=== PATIENT | male | born 1970 | race Caucasian/White ===

== ENCOUNTER 2022-05-15 11:09 | Outpatient (CLI) | payer OTHER, SELFPAY ==
--- NOTE | 2022-05-15 10:45 | DI.RAD_ITS ---
Exam(s) XR KNEE LT 4V AP,LAT,BERNADETTE,PAT EXAM: XR KNEE LT 4V AP,LAT,BERNADETTE,PAT CLINICAL HISTORY: left knee pain. TECHNIQUE: 2D digital imaging was performed. Three views. COMPARISON: No exams were available for comparison FINDINGS: BONES: No acute fracture is present. No bony destructive lesion is seen. Enthesophyte is seen at patrick driceps insertion on the patella. JOINTS: The knee is normally aligned. No joint effusion is seen. Joint spaces are maintained. Minima l spurring at the tibial spines. SOFT TISSUE: Normal. IMPRESSION: Minimal degenerative changes. DATA REPOSITORY: RADIATION DOSE DELIVERED:
== END 2022-05-15 11:10 | disposition home or self-care (01) ==
LOC: DIORS 11:11
PROVIDERS: PCP Family Medicine; Referring Provider Family Medicine; Visit Provider Physician Assistant
DX: M25.562 Pain in left knee (principal); M76.892 Other specified enthesopathies of left lower limb, excluding foot
CPT/HCPCS: 73564

== ENCOUNTER 2022-12-27 08:03 | Day surgery (SDC) | payer OTHER, SELFPAY ==
--- NOTE | 2022-12-27 07:24 | W.PM.DSUDISC ---
Discharge Plan Disposition Patient Disposition: Home Condition: Good Discharge Details Reason For Visit: Left patellofemoral DJD Attending Provider: Vidal Ramos Primary Care Provider: Rohan Portillo Home Meds and New Rx's Prescriptions: No Action gabapentin 300 mg capsule 300 mg PO DAILY ibuprofen 800 mg tablet 800 mg PO Q8H PRN (Reason: pain) Qty: 180 1RF Discharge Instructions Additional Instructions: Patellofemoral Replacement Discharge Instructions Activity: The most important activity is to walk and to work on gentle motion (both flexion and extension). You should try to take short walks a few times a day. It is important that when resting you work on keeping the knee straight. Avoid putting a pillow behind the knee as this will encourage flexion. Work on range of motion exercises as provided by Physical Therapy. - Start outpatient physical therapy within 2 weeks. - You should wear the AMI hose on both legs for 2 weeks. You may remove these at night. You may also use any compression sock in place of the AMI hose. - Utilize [employer] to review exercises, see videos on exercises and obtain basic information pertaining to your surgery and your recovery. Dressing: Remove the Jerry wrap by 2 days after your surgery and put on the AMI stocking given to you from the hospital. Keep the surgical dressing (underneath the JERRY wrap) in place for at least one week. After the first week it may be removed and replaced with light gauze and tape or nothing. The wound and dressing may get wet after 3 days but avoid soaking the dressing or otherwise it will need to be changed. Many people prefer covering the dressing with cling wrap (saran wrap) to minimize it from getting soaked. If it gets wet, just pat dry. If it starts to peel off then it will need to be changed. Medications: - You should take Tylenol and anti-inflammatory [Celebrex] as your primary pain control medications. If the Celebrex is too expensive or not covered, please call the office for another alternative (Advil/Ibuprofen or Naproxen/Aleve) - You have been prescribed a stronger pain medication [Oxycodone] for breakthrough pain, take as needed as prescribed. - You have also been prescribed a stomach acid reduction agent [Pantoprozole] to help reduce stomach acid and reflux. [- You have been prescribed Gabapentin to take at night for restlessness and nerve pain.] - You will be taking [Aspirin 81mg twice a day] for DVT prevention unless instructed otherwise. [- You have also been prescribed Decadron to take to control post-operative nausea and pain. You will start this tomorrow.] - If you have constipation you should take Colace or Miralax (both [id number]). It takes most people 3-4 days to have a bowel movement. Follow-up: 2 weeks If you have any acute concerns or questions, please do not hesitate to contact the office at [phone]. You may contact Dr. Ramos with any questions after hours through the hospital at [phone] or on his cell phone at [phone]. Referrals: Vidal Ramos MD [ [facility] STAFF PHYSICIAN] - Equipment/Supplies: Walker Activity:: Elevate Remove Dressings/Wound Care:: Do Not Remove Shower/Bathe:: Cover Diet:: As Tolerated
[2022-12-27 08:18] VITALS: BP 153/95; PULSE 68; RESP 16; TEMP 36.5; O2SAT 99
--- NOTE | 2022-12-27 08:36 | PDOC.ANES ---
Date of service: 12/27/22 Time of Service: 08:36 Anesthesia Note Report Anesthesia Note: Patient chewed tobacco at 0800 this morning. Discussed case with Colette Callahan. Due to NPO violation patient will be postponed. Informed Dr. Ramos, transplant case manager, and DSU charge nurse. Had discussion with patient, spouse, and Corrina RN at bedside related to anesthetic risk and rationale for postponement. Patient was disappointed but understanding. Denied questions. Informed me that he has had anesthesia while dipping before. I discussed the danger of that and recommended he always let us know in the future and not use chewing tobacco prior to anesthesia and follow all appropriate NPO guidelines as per preop RN. Will be rescheduled through the office.
== END 2022-12-27 08:04 | disposition home or self-care (01) ==
LOC: SUR 08:04
PROVIDERS: PCP Family Medicine; Visit Provider Student in an Organized Health Care Education/Training Program
DX: M17.12 Unilateral primary osteoarthritis, left knee (principal); Z53.09 Procedure and treatment not carried out because of other contraindication

== ENCOUNTER 2023-01-17 05:57 | Day surgery (SDC) | payer OTHER, SELFPAY ==
[2023-01-17] VITALS (11 sets, daily range): BP systolic 114–153; BP diastolic 58–94; PULSE 53–67; RESP 12–19; TEMP 36.5–37; O2SAT 95–99; BMI 36.4
[2023-01-17] MEDS: Acetaminophen 500 MG TAB 1000 MG PO (06:36)
[2023-01-17] MEDS: Gabapentin 300 MG CAP PO (06:36)
[2023-01-17] MEDS: Celecoxib 200 MG CAP 400 MG PO (06:36)
[2023-01-17] MEDS: Lactated Ringers 1,000 ML 80 ML IV (06:36)
--- NOTE | 2023-01-17 06:45 | W.ANESPRE ---
General Info Date of Service Date Performed: 01/17/23 Height: 6 ft 2 in Weight: 128.9 kg Body Mass Index (BMI): 36.4 Surgical Procedure: Operation Date: 01/17/23 08:00 Proposed Procedure Side Surgeon p Knee Patellofemoral Replacement Left Vidal Ramos MD Meds Allergies and Home Medications Allergies Allergy/AdvReac Type Severity Reaction Status Date / Time No Known Allergies Allergy Verified 01/17/23 06:07 Home Medication Medication Instructions Recorded gabapentin 300 mg capsule 300 mg PO DAILY 05/15/22 ibuprofen 800 mg tablet 800 mg PO Q8H PRN pain #180 tabs 09/07/22 Current Visit Medications: Current Medications Generic Name Dose Route Start Last Admin Trade Name Freq PRN Reason Stop Dose Admin Acetaminophen 1,000 mg 01/17/23 06:00 01/17/23 06:36 Acetaminophen 500 Mg Tab PO 01/17/23 16:00 1,000 mg PREOP SHAWNA Administration Celecoxib 400 mg 01/17/23 06:00 01/17/23 06:36 Celecoxib 200 Mg Cap PO 01/17/23 16:00 400 mg PREOP SHAWNA Administration Gabapentin 300 mg 01/17/23 06:00 01/17/23 06:36 Gabapentin 300 Mg Cap PO 01/17/23 16:00 300 mg PREOP SHAWNA Administration Tranexamic Acid 1,000 mg/ 60 mls @ 360 mls/hr 01/17/23 06:00 Sodium Chloride IVPB 01/17/23 16:00 PREOP SHAWNA Ringer's Solution 1,000 mls @ 80 mls/hr 01/17/23 06:00 01/17/23 06:36 IV 02/15/23 23:59 80 mls/hr INFUSION SHAWNA Administration Cefazolin Sodium 3,000 mg/ 100 mls @ 200 mls/hr 01/17/23 06:00 Sodium Chloride IVPB 01/17/23 18:00 PREOP SHAWNA IV Miscellaneous Supplies 1 each 01/17/23 06:00 Iv Access IV 02/15/23 23:59 DIRECTED SHAWNA Sodium Chloride 0 ml 01/17/23 06:00 Normal Saline Flush 10 Ml Syr IV 02/15/23 23:59 PRN PRN Sodium Chloride 0 ml 01/17/23 06:00 Normal Saline 10 Ml Vial IJ 02/15/23 23:59 DIRECTED PRN Sterile Water 0 ml 01/17/23 06:00 Water,Injection,Sterile 10 Ml Vial IJ 02/15/23 23:59 DIRECTED PRN PFSH Active Problems Active Problems: Problem Status Onset Code Chronic maxillary sinusitis J32.0 Left knee pain M25.562 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 states it was exploratory Tobacco Smoking/Tobacco Use Status: Current every day Tobacco Type: smokeless tobacco Alcohol Alcohol Intake: current Alcohol intake frequency: holidays/special occasions only Substance Use Substance use: Never Substance use type: does not use Vital Signs and Lab Results Vital Signs Most Recent Vital Signs in EMR: Most Recent Vital Signs Temp Pulse Resp BP Pulse Ox 36.5 C 57 L 16 153/94 H 99 01/17/23 06:08 01/17/23 06:08 01/17/23 06:08 01/17/23 06:08 01/17/23 06:08 Lab Results Blood Type / Crossmatch: No Data to Display Complete Blood Count: No Data to Display Complete Metabolic Panel: No Data to Display Liver Function Panel: No Data to Display Coagulation Panel: No Data to Display Cardiac Panel: No Data to Display Arterial Blood Gas: No Data to Display Venous Blood Gas: No Data to Display Pancreas Panel: No Data to Display Thyroid Panel: No Data to Display Infectious Disease: No Data to Display Blood Cultures: No Data to Display Toxicology Panel: No Data to Display Anesthesia Assessment and Plan Anesthesia History Personal History: No History of Anesthesia Complications Family History: No Family History of Anesthesia Complications Exercise Tolerance Exercise Tolerance: Metabolic Equivalents>4 Pertinent Negatives Pertinent Negatives: No Symptoms of GERD, No Major Cardiovascular Symptoms or Complaints, No Major Pulmonary Symptoms or Complaints and No History of CVA/TIA Cardiac & Pulmonary Exam Cardiac Exam: Normal S1/S2 Heart Sounds Pulmonary Exam: Clear Bilateral Breath Sounds Implantable Cardiac Device Does patient have a Pacemaker or an ICD?: No Airway Exam Known Difficult Airway: No Mallampati Class: 3 Mouth Opening: Normal (> 3cm) Thyromental Distance: Greater than 3 cm Neck Range of Motion: Full ROM Neck Circumference: Thick Teeth Condition: Normal Dentition and Removable Dentures/Plates Upper ASA Classification ASA Score: ASA 2 Emergency Case?: No NPO Status NPO Status: NPO Clears >2 hours, Solids >8 hours Anesthesia Plan Resuscitation Status: Full Code Anesthesia Technique: Spinal Anesthesia Airway Planned: Natural Airway Pain Management: Surgeon and patient request nerve block Monitors Used: Standard Monitors
--- NOTE | 2023-01-17 07:28 | W.PREOPHP ---
Assessment and Plan Assessment and plan (1) Chondromalacia of left patellofemoral joint: Status: Acute Assessment and plan: Henrry is a 52-year-old with ongoing patellofemoral pain from chondromalacia patella stemming from work injury. He has exhausted other nonoperative options and is here today for patellofemoral replacement. I once again reviewed the technical details of the case with him. I discussed the necessary time for rehabilitation. I reviewed the risk to include bleeding, infection, pain, stiffness, patellar instability, adjacent compartment degeneration or disease, blood clot, need for repeat procedures. Despite these risk, he elects to proceed. (2) Left knee DJD: Status: Acute History of Present Illness History of Present Illness Chief Complaint: Left Patellofemoral Arthritis, Patellar Chondromalacia Narrative: Henrry is a 52-year-old who has known patellar chondromalacia and ongoing pain about the patellofemoral joint. Please the previous office note for complete detailed history. He is here for patellofemoral placement. He denies any significant changes to medical history. No chest pain or shortness of breath. Review of Systems All systems reviewed & are unremarkable except as noted in HPI and below PFSH All Active Problems Chronic maxillary sinusitis (Chronic) Left knee pain (Acute) Left knee DJD (Acute) Mild following work injury on 01/25/22 Depo-medrol injection: 05/15/22 Chondromalacia of left patellofemoral joint (Acute) Morbid obesity (Acute) Internal derangement of left knee (Acute) Medical History Back pain Buldging disk Mass of right side of neck (11/26/17) per pt. 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 states it was exploratory Social History Smoking/Tobacco Use Status: Current every day Tobacco Type: smokeless tobacco Smoking risk assessment performed?: Yes Alcohol Intake: current Alcohol Intake frequency: holidays/special occasions only Drug use: Never Substance use type: does not use Housing: house Do you feel safe at home: Yes Do you feel safe in your relationship?: Yes Meds Allergies and Home Medications Allergies Allergy/AdvReac Type Severity Reaction Status Date / Time No Known Allergies Allergy Verified 01/17/23 06:07 Home Medications Medication Instructions Recorded Confirmed Type gabapentin 300 mg capsule 300 mg PO DAILY 05/15/22 01/16/23 History acetaminophen 500 mg tablet 1,000 mg PO TID #90 tabs 01/17/23 Rx aspirin 81 mg tablet,delayed 81 mg PO BID #60 tabs 01/17/23 Rx release celecoxib 200 mg capsule 200 mg PO BID #60 caps 01/17/23 Rx dexamethasone 4 mg tablet 4 mg PO DAILY #2 tabs 01/17/23 Rx oxycodone 5 mg tablet 5 mg PO Q4H PRN pain #20 tabs 01/17/23 Rx pantoprazole 40 mg tablet,delayed 40 mg PO DAILY #30 tabs 01/17/23 Rx release Exam Resp Effort & Inspection: normal respiratory effort Auscultation: clear to auscultation bilaterally Cardio Rate: regular rate Rhythm: regular rhythm Results Last Vital Signs Temp 37.0 C 01/17/23 07:27 Pulse 64 01/17/23 07:27 Resp 16 01/17/23 07:27 BP 122/84 01/17/23 07:27 Pulse Ox 95 01/17/23 07:27
[2023-01-17] MEDS: ceFAZolin 3,000 MG in Normal Saline 100 ML 200 MG IVPB (07:35)
--- NOTE | 2023-01-17 08:03 | W.ANESNERVE ---
Nerve Block Single Injection Procedure Date and Time Date Performed: 01/17/23 Procedure Start: 07:16 Location Where Procedure Performed Procedure Location: Day Surgery Unit Reason Performed: Postoperative Analgesia Requesting Provider: Vidal Ramos Timeout Performed Timeout Performed: Yes Monitoring Used ECG, Blood Pressure, SpO2 and See EMR for corresponding vital signs Sterility Sterility: Hand Hygiene, Surgical Cap, Surgical Mask, Sterile Gloves, Sterile Drape/Sheet and Chlorhexidine Sedation Given During Procedure Sedation Given (Indicate Dose Given): Versed IV Dose:: 2 mg Patient Mental Status Patient Mental Status: Awake Nerve Block 1st Nerve Block: Laterality: Left Block Type: Adductor Canal Ultrasound Image Saved?: Yes Needle / Catheter Used: 100mm SonoPlex II Local Anesthetic Bolus (Indicate Dose Given): Lidocaine used for local infiltration of skin, Injected in 3-5ml increments after negative blood aspiration, Blood noted on aspiration (needle withdrawn and cleared then reinserted, negative aspiration prior to injection, ) and Bupivacaine 0.25% Dose:: 15 ml Additives (Indicate Dose Given): None Ultrasound: Sterile probe cover and gel used Nerve Stimulator: Supplement to Ultrasound use and No twitch or parasthesia noted < 0.5 mA Paresthesia: None Procedure Tolerated: No Complications and Patient tolerated well Procedure Outcome: Successful Performed By: Pat Brownlee
--- NOTE | 2023-01-17 09:17 | ROE_ITS ---
Date of service: 01/17/23 Time of Service: 09:17 Operative Note Operative Note DATE OF PROCEDURE: 01/17/23 PRE-OP DIAGNOSIS: Left Patellar Chondromalacia POST-OP DIAGNOSIS: same PROCEDURE: Left Patellofemoral Replacement SURGEON: Vidal Ramos TOOL AND DIE INSPECTOR: Darren Larsen ANESTHESIA TYPE: Spinal Refer to Anesthesia Record ESTIMATED BLOOD LOSS: 100 PATHOLOGY: none sent TOURNIQUET TIME: 0 COMPLICATIONS: None Patient was transported to: PACU Patient's condition: stable Implants: 1. Arthrosurface [employer] Trochlear Component, 7x5mm 2. Depuy Attune Patellar Button, 38mm Indications: Henrry is a 52 year old male who has had symptoms of left knee patellar chondromalacia from a work-related trauma. Conservative measures have been exhausted yet pain and dysfunction persisted. Please see office notes for complete details. Given the continued symptoms, I recommended a patellofemoral replacement. I reviewed the risks of the procedure to include bleeding, infection, pain, stiffness, worsening medial or lateral compartment arthritis, patellar instability, loosening, fracture, clot. Despite these risks, Henrry elected to proceed. Findings: There was a focal area of full thickness cartilage damage at the median ridge and the lateral facet of the patella. There were some areas of thinning about the lateral edge of the trochlea. The remainder of the knee did not show any extensive cartilage wear. Procedure Description: Henrry was greeted in the preoperative holding area where the correct side was identified and marked. The consent was reviewed with the patient and signed. The history and physical was updated. All questions were answered. Preoperative medications were administered: Acetaminophen 1000mg, Celebrex 400mg, and Gabapentin 300mg. An adductor canal block was then administered by the anesthesia team in the PACU. Henrry was taken back to the operating room. A spinal anesthestic was then administered. The patient was placed into the supine position on the operating room table. A nonsterile tourniquet was placed high onto the leg but not used. Posts were placed for positioning during the procedure. All bony prominences were well padded. Prophylactic antibiotics in the form of Cefazolin were administered. 1g of Tranxemic Acid was given intravenously within 30 minutes of incision. The left leg was then prepped with Chloraprep and draped in a standard fashion with impervious stockinette and extremity drape. A second prep with Chloraprep was performed prior to placing Ioband. A timeout to confirm correct identity, side and site, procedure, allergies, anesthesia, and medical concerns was performed. With the knee in some flexion, a midline incision was made overlying the knee. Full thickness skin flaps were raised once the extensor mechanism was encountered. These were raised medially and laterally. Any bleeding was controlled with electrocautery. Once the extensor mechanism was fully exposed, a medial parapatellar arthrotomy was performed in a flexed position. All bleeding from the arthrotomy and the geniculate arteries was coagulated. The menisci and intrameniscal ligament was preserved. The knee was held in extension and the patella was measured as 32 mm. Using the patellar clamp and cut guide, this was resected to a flat surface with at least 13mm of thickness remaining. The size 38 patella fit the best. This was oriented and then clamped into position. The lugs were drilled. The Arthrosurface patellofemoral trial was then placed in the appropriate position and a single guidewire was placed through the center of this device. This was confirmed to be in appropriate location using the targeting arm. The trochlea was then sized in both directions corresponding to an 7x5. The initial reamer was then placed and taken down to appropriate depth. The reaming and drill guide was then placed within this recess and secured with pins. Using both the centralized reamer and the edge reamer, the trochlear recess was prepared. The guide was removed and the edges were curetted for completeness. The central hole was then prepared with a drill and a tap. The outer surface screw was then inserted to the premeasured depth. The 7x5mm patellofemoral [facility] [employer] trochlear component by Arthrosurface was then malleted into position sitting flush over the lateral and proximal lateral aspect. High viscosity cement was prepared on the back table under vacuum preparation. When ready, cement was manually impacted into the cut surface of the patella and the patellar button was clamped into position and held. During this process attention was turned to the gutters of the knee and for all interfaces for any excess cement. While the cement was hardening, the knee was irrigated with Surgiphor betadine solution. It was allowed to sit in the knee for 3 minutes. After the cement had finally cured, approximately 15min, the clamp was removed from the patella and the knee was taken through range of motion. The capsule was then reapproximated with a No. 1 Vicryl. The second dosing of 1g TXA was started. Deep tissues were then reapproximated with 0 Vicryl and 2-0 Vicryl. The skin was closed with a running 3-0 Monocryl in a subcuticular fashion. This was reinforced with skin glue. A Mepilex silver dressing was applied along with a [id number]-[id number] MARY wrap. A CryoCuff was applied. Henrry was transferred to the hospital bed without difficulty an suffering no apparent complication. Henrry has a good prognosis. Physical therapy will start today and without restrictions, weight-bearing as tolerated. Aspirin 81mg BID will be used for DVT prophylaxis.
[2023-01-17] MEDS: fentaNYL 100 MCG/2 ML VIAL IVP ×2 (09:50→10:00)
--- NOTE | 2023-01-17 10:29 | W.ANESPOSTOP ---
Postoperative Evaluation Date, Time and Location Date Performed: 01/17/23 Time Performed: 10:20 Patient Location: Day Surgery Unit Vital Signs Most Recent Imported Vital Signs: Most Recent Vital Signs Temp Pulse Resp BP Pulse Ox 36.7 C 53 L 16 125/88 98 01/17/23 10:14 01/17/23 10:14 01/17/23 10:14 01/17/23 10:14 01/17/23 10:14 Pain Score Most Recent Pain Score: Most Recent Pain Score Pain Level 4 01/17/23 10:14 Assessment Mental Status: Awake (Alert & Oriented to Patient Baseline) Airway and Respiratory Function: Patent airway with normal (patient baseline) respiratory exam Cardiovascular Function: Hemodynamically Stable Hydration Status: Adequately Hydrated Nausea & Vomiting: No Nausea or Vomiting Pain: Pain is tolerable per patient Peripheral Nerve Block: Regional nerve block not resolved at time of post operative discharge
--- NOTE | 2023-01-17 11:58 | PDOC.DSDIS_ITS ---
Date of service: 01/17/23 Time of Service: 11:58 Discharge Plan Disposition Patient Disposition: Home Condition: Good Discharge Details Reason For Visit: PF Replacement L Knee Attending Provider: Vidal Ramos Primary Care Provider: Rohan Portillo Home Meds and New Rx's Prescriptions: New celecoxib 200 mg capsule 200 mg PO BID Qty: 60 0RF aspirin 81 mg tablet,delayed release (DR/EC) 81 mg PO BID Qty: 60 0RF acetaminophen 500 mg tablet 1,000 mg PO TID Qty: 90 3RF pantoprazole 40 mg tablet,delayed release (DR/EC) 40 mg PO DAILY Qty: 30 0RF dexamethasone 4 mg tablet 4 mg PO DAILY Qty: 2 0RF oxycodone 5 mg tablet 5 mg PO Q4H MDD 6 tabs PRN (Reason: pain) Qty: 20 0RF Continued gabapentin 300 mg capsule 300 mg PO DAILY Discontinued ibuprofen 800 mg tablet 800 mg PO Q8H PRN (Reason: pain) Qty: 180 1RF Discharge Instructions Additional Instructions: PF Replacement Knee Discharge Instructions Activity: The most important activity is to walk and to work on gentle motion (both flexion and extension). You should try to take short walks a few times a day. It is important that when resting you work on keeping the knee straight. Avoid putting a pillow behind the knee as this will encourage flexion. Work on range of motion exercises as provided by Physical Therapy. - Start outpatient physical therapy within 2 weeks. - You should wear the AMI hose on both legs for 2 weeks. You may remove these at night. You may also use any compression sock in place of the AMI hose. - Utilize [employer] to review exercises, see videos on exercises and obtain basic information pertaining to your surgery and your recovery. Dressing: Remove the Jerry wrap by 2 days after your surgery and put on the AMI stocking given to you from the hospital. Keep the surgical dressing (underneath the JERRY wrap) in place for at least one week. After the first week it may be removed and replaced with light gauze and tape or nothing. The wound and d ressing may get wet after 3 days but avoid soaking the dressing or otherwise it will need to be changed. Many people prefer covering the dressing with cling wrap (saran wrap) to minimize it from getting soaked. If it gets wet, just pat dry. If it starts to peel off then it will need to be changed. Medications: - You should take Tylenol and anti-inflammatory Celebrex as your primary pain control medications. If the Celebrex is too expensive or not covered, please call the office for another alternative (Advil/Ibuprofen or Naproxen/Aleve) - You have been prescribed a stronger pain medication Oxycodone for breakthrough pain, take as needed as prescribed. - You have also been prescribed a stomach acid reduction agent Pantoprozole to help reduce stomach acid and reflux. - You will continue your Gabapentin for restlessness and nerve pain. - You will be taking Aspirin 81mg twice a day for DVT prevention unless instructed otherwise. - You have also been prescribed Decadron to take to control post-operative nausea and pain. You will start this tomorrow. - If you have constipation you should take Colace or Miralax (both [id number]). It takes most people 3-4 days to have a bowel movement. Follow-up: 2 weeks 01/29/2013 @ 1130am If you have any acute concerns or questions, please do not hesitate to contact the office at [phone]. You may contact Dr. Ramos with any questions after hours through the hospital at [phone] or on his cell phone at [phone]. Stand Alone Forms: Anesthesia Discharge InstReece, Denia.Nerve Block Instructions, Jes Kirby ([facility]U) Referrals: Vidal Ramos MD [ [facility] STAFF PHYSICIAN] - Equipment/Supplies: Walker Activity:: Activity as Tolerated Shower/Bathe:: 72 hours Diet:: As Tolerated Discharge Orders Discharge Orders: Discharge Order (Routine); Ordered 01/17/23 Ordered By: Vidal Ramos
--- NOTE | 2023-01-17 14:27 | PT.INIE ---
Date of service: 01/17/23 Time of Service: 11:09 PT Notes Visit Reasons: PF Replacement L Knee Physical Therapy Day Surgery Initial Evaluation Date: 01/17/2023 Referring Doctor: NANCY Hairston PT Orders: PT CONSULT: Eval/Treat Precautions: WBAT to left LE with bilateral axillary crutches. 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 PMHX: All Active Problems? Chronic maxillary sinusitis (Chronic) Left knee pain (Acute) Left knee DJD (Acute) Mild following work injury on 01/25/22 Depo-medrol injection: 05/15/22 Chondromalacia of left patellofemoral joint (Acute) Morbid obesity (Acute) Internal derangement of left knee (Acute) Medical History? Back pain Buldging disk Mass of right side of neck (11/26/17) per pt. 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 Hx of sinus surgery Social History/Home Situation: Lives with in private home with three steps to enter, rails far apart. Works for [employer] he sutained his L knee injury. Equipment Owned/DME: None previoulsy Subjective: Reports 1/10 pain in the L knee. Denies headcahe, chest pain, and lightheadedness throughout. Wanted to use bathroom first before the walk. Impressed with how much he can do within hours of surgery. Objective: General Observation: resting in bed. MARY wrap to L LE. Cryocuff to L knee. Mental Status: Alert and oriented x 4 Pain: 1/10 in the L knee ROM: Right Lower Extremity: Hip flexion WFL. Hip abduction WFL. Knee flexion WFL. Ankle dorsiflexion WFL. Ankle plantarflexion WFL. Left Lower Extremity: Hip flexion WFL. Hip abduction WFL. Knee flexion 0-100 degrees. Ankle dorsiflexion WFL. Ankle plantarflexion WFL. Strength: Right Lower Extremity: Hip flexors 5/5. Hip abductors 5/5. Knee flexors 5/5. Knee extensors 5/5. Ankle dorsiflexors 5/5. Ankle plantarflexors 5/5. Left Lower Extremity:Hip flexors 4/5. Hip abductors 5/5. Knee flexors 3-/5. Knee extensors 4-/5. Ankle dorsiflexors 5/5. Ankle plantarflexors 5/5. Sensation: Inatct as to pain and light pressure in L LE Bed Mobility/Transfers: Supine to sit independent Sit to stand independent with bilateral axillary crutches Stand to sit independent with bilateral axillary crutches Bed to chair independent with bilateral axillary crutches Gait: 150 feet with level sruface ambulation using bilateral axillary crutches supervision assist only and minimal verbal cueing for correct gair pattern and increased L knee flexion during push off and swing phase. Good quad activation. Stairs: 6 x 4inch steps and 4 x 6-inch steps while holding onto 1 rail and a cane with the other hand. Step-to, supervision assist only. MInimal cues for correct ans safe gait pattern. Balance: Static Sitting: Normal Dynamic Sitting: Normal Static Standing: Fair Dynamic Standing: Fair Special Tests: Mobility Limitations Standardized Measure [facility] AM-PAC 6 clicks Basic Mobility Inpatient Short Form: Raw Score: 24 CMS Score: 0% deficit Informed Consent/Education: Patient and were instructed in purpose of PT consult. Packet containing PF replacement exercise protocol has been given to patient. Education and training on initial set of exercises that can be done at home have been completed with patient. Exercises - Quadriceps Sets - 1 x daily - 7 x weekly - 1 sets - 10 reps - 5 hold - Supine Heel Slide - 1 x daily - 7 x weekly - 1 sets - 10 reps - 5 hold - Supine Ankle Pumps - 1 x daily - 7 x weekly - 1 sets - 10 reps - 5 hold - Small range straight leg raise - 1 x daily - 7 x weekly - 1 sets - 10 reps - 5 hold - Seated August - 1 x daily - 7 x weekly - 1 sets - 10 reps - 5 hold Assessment: Patient requires the use of bilateral axillary for mobility ADL performance crutches in order to maximize independence and reduce fall risk. Patient presents with clinical signs and symptoms consistent with current/admitting diagnoses that have resulted to mobility limitations, gait instability, generalized weakness, and impairment of motor control as demonstrated by the following impairment level findings: 1. Decreased strength to left knee major muscle groups 2. Impaired standing balance 3. Limitation of joint ACTIVE range of motion in left knee flexion Impairments are contributing to the following functional limitations: 1. Inability to safely ambulate without assistive device 2. Increase completion time for mobility ADL performance 3. Increased fall risk Patient is assessed as a 26006 moderate complexity based on the following: History: 52-year-old male with impairment level findings, functional limitations, and past medical history as indicated above Examination: Demonstrable impairment in strength, balance, and mobility level with underlying impairments and functional limitations as documented above Presentation: Evolving Decision Makin moderate complexity Goals: N/A. PT evaluation and 1-2 treatment sessions only for functional mobility training using recommended AD and for HEP instruction. Plan of Care/Treatment Plan: N/A. PT evaluation and 1-2 treatment session only for functional mobility training using recommended AD and for HEP instruction. DISCHARGE RECOMMENDATIONS: Home when medically cleared by orthopedic surgeon. Recommend outpatient PT services in order to optimize functional mobility outcomes and facilitate return to independent community ambulation without an assistive device. TREATMENT CODE/TIME: 9716 2 x 27 minutes beginning at 11:09 AM. Thank you for the opportunity to participate in the care of this patient. Jenn Gallegos PT, DPT, CLT [facility] [place], [place]
== END 2023-01-17 12:01 | disposition home or self-care (01) ==
PROVIDERS: PCP Family Medicine; Visit Provider Student in an Organized Health Care Education/Training Program
PROC: (CPT 27437; principal; 2023-01-17 07:30)
DX: M17.12 Unilateral primary osteoarthritis, left knee (principal); M22.42 Chondromalacia patellae, left knee
CPT/HCPCS: 27438; 76942; 97162; J0690; J1100; J2250; J2405; J3010

== ENCOUNTER 2023-01-29 11:29 | Outpatient (CLI) | payer OTHER, SELFPAY ==
--- NOTE | 2023-01-29 11:15 | DI.RAD_ITS ---
Exam(s) XR KNEE LT 3V AP,LAT,BERNADETTE EXAM: XR KNEE LT 3V AP,LAT,BERNADETTE CLINICAL HISTORY: f/u L patellofemoral replacement. TECHNIQUE: 2D digital imaging was performed. Images were obtained. AP, lateral and oblique views w ere obtained. COMPARISON: CR XR KNEE LT 4V AP,LAT,BERNADETTE,PAT from 05/15/2022 FINDINGS: BONES: There are postoperative changes at the patellofemoral joint. No fracture or dislocation. JOINTS: The orthopedic hardware is in good position. No evidence of hardware loosening. There is a joint effusion. SOFT TISSUE: Normal. IMPRESSION: Patellofemoral joint replacement. DATA REPOSITORY: RADIATION DOSE DELIVERED:
== END 2023-01-29 11:30 | disposition home or self-care (01) ==
LOC: DIORS 11:29
PROVIDERS: PCP Family Medicine; Referring Provider Family Medicine; Visit Provider Student in an Organized Health Care Education/Training Program
DX: Z47.1 Aftercare following joint replacement surgery (principal); Z96.652 Presence of left artificial knee joint
CPT/HCPCS: 73562

== ENCOUNTER 2023-06-18 12:46 | Outpatient (CLI) | payer OTHER, SELFPAY ==
--- NOTE | 2023-06-18 10:38 | DI.RAD_ITS ---
Exam(s) XR KNEE LT 3V AP,LAT,BERNADETTE EXAM: XR KNEE LT 3V AP,LAT,BERNADETTE CLINICAL HISTORY: pain. TECHNIQUE: 2D digital imaging was performed. Three images were obtained. AP, PA tunnel and lateral views were obtained. COMPARISON: CR XR KNEE LT 3V AP,LAT,BERNADETTE from 01/29/2023 FINDINGS: BONES: There are stable post operative changes of a partial left knee replacement present. No fractu re or dislocation. JOINTS: The orthopedic hardware is in good position. No evidence of hardware loosening. Small joint effusion. SOFT TISSUE: Normal. IMPRESSION: 1. Stable postoperative changes. 2. Small joint effusion. DATA REPOSITORY: RADIATION DOSE DELIVERED:
== END 2023-06-18 12:47 | disposition home or self-care (01) ==
LOC: DIORS 12:46
PROVIDERS: PCP Family Medicine; Visit Provider Physician Assistant
DX: M22.42 Chondromalacia patellae, left knee (principal)
CPT/HCPCS: 73562

== ENCOUNTER 2024-02-04 14:01 | Outpatient (CLI) | payer OTHER, SELFPAY ==
--- NOTE | 2024-02-04 08:00 | DI.RAD_ITS ---
Exam(s) XR KNEE LT 3V AP,LAT,BERNADETTE EXAM: XR KNEE LT 3V AP,LAT,BERNADETTE CLINICAL HISTORY: status post left patellofemoral replacement. TECHNIQUE: 2D digital imaging was performed. COMPARISON: CR XR KNEE LT 3V AP,LAT,BERNADETTE from 06/18/2023 FINDINGS: 3 views There is stable position and alignment of the patellofemoral compartment prosthesis. No evidence of fracture or obvious loosening. Patellar resurfacing also again noted. There is no narrowing of the medial lateral compartments of the knee. IMPRESSION: Stable satisfactory appearance DATA REPOSITORY: RADIATION DOSE DELIVERED:
== END 2024-02-04 14:02 | disposition home or self-care (01) ==
LOC: DIORS 14:01
PROVIDERS: PCP Family Medicine; Visit Provider Physician Assistant
DX: M22.42 Chondromalacia patellae, left knee (principal)
CPT/HCPCS: 73562

== ENCOUNTER 2024-03-31 14:46 | Outpatient (CLI) | payer OTHER, SELFPAY ==
--- NOTE | 2024-03-31 08:30 | DI.RAD_ITS ---
Exam(s) XR KNEE LT 4V+ EXAM: XR KNEE LT 4V+ CLINICAL HISTORY: s/p L pf REPLACEMENT. TECHNIQUE: 2D digital imaging was performed. COMPARISON: CR XR KNEE LT 3V AP,LAT,BERNADETTE from 02/04/2024 FINDINGS: 3 views Stable position/alignment of the patellofemoral prosthesis. On the merchant's view there is thin shelby ency between the prosthesis and the condyle. Correlation with any clinical signs of loosening eviden t. There is no obvious joint effusion. Medial lateral compartments maintain normal height. IMPRESSION: As above. DATA REPOSITORY: RADIATION DOSE DELIVERED:
== END 2024-03-31 14:47 | disposition home or self-care (01) ==
LOC: DIORS 15:21
PROVIDERS: PCP Family Medicine; Visit Provider Student in an Organized Health Care Education/Training Program
DX: M22.42 Chondromalacia patellae, left knee (principal)
CPT/HCPCS: 73564

== ENCOUNTER 2024-04-29 14:37 | Outpatient (CLI) | payer OTHER, SELFPAY ==
--- NOTE | 2024-04-29 12:00 | DI.RAD_ITS ---
Exam(s) XR FOOT RT COMPLETE EXAM: XR FOOT RT COMPLETE CLINICAL HISTORY: comparison views, lt foot pain, trauma,m79.672. TECHNIQUE: 2D digital imaging was performed. COMPARISON: CR XR FOOT LT COMPLETE from 04/29/2024 FINDINGS: 3 views No evidence of fracture or diastasis of the Lisfranc joint. No pes planus. Small benign bone island is noted in the head of the great toe metatarsal. No osseous lesions nor erosions. No inferior fara caneal spur. There is a small enthesophyte on the posterior calcaneus at the Achilles insertion site . IMPRESSION: No acute osseous findings in the right foot. DATA REPOSITORY: RADIATION DOSE DELIVERED:
--- NOTE | 2024-04-29 12:00 | DI.RAD_ITS ---
Exam(s) XR FOOT LT COMPLETE EXAM: XR FOOT LT COMPLETE CLINICAL HISTORY: persistent pain lt foot, m79.672. TECHNIQUE: 2D digital imaging was performed. COMPARISON: CR XR FOOT RT COMPLETE from 04/29/2024 FINDINGS: 3 views No evidence acute fracture or diastasis the Lisfranc joint. Great toe metatarsophalangeal joint appe ars unremarkable. The more lateral the 2 sesamoid bones subjacent to the great toe metatarsal head i s noted to be bipartite. Similar findings not seen in the opposite-right foot. There is also an accessory ossicle on the lateral aspect of the left foot measuring 1.5 cm length by 0. 5 cm wide. This is adjacent to the lateral aspect of the cuboid along the course of the peroneus longus tendon. A similar accessory ossicle is not seen on the lateral aspect of the opposite-right f oot. No other accessory ossicles noted. Tiny inferior calcaneal spur evident. There is also small calcific density seen at the insertional aspect of the Achilles tendon on the posterior calcaneus, si milar to the opposite-right side. IMPRESSION: No acute osseous findings in the left foot but there are 2 findings as described above which are diff erent than on the opposite-right side. DATA REPOSITORY: RADIATION DOSE DELIVERED:
== END 2024-04-29 14:57 ==
PROVIDERS: PCP Family Medicine; Visit Provider Nurse Practitioner Family
DX: M79.672 Pain in left foot (principal)
CPT/HCPCS: 73630

== ENCOUNTER 2024-05-21 01:30 | Outpatient (CLI) | payer OTHER, SELFPAY ==
--- NOTE | 2024-05-21 06:45 | DI.MRI_ITS ---
Exam(s) MR LOWER JOINT LT WO EXAM: MR LOWER JOINT LT WO CLINICAL HISTORY: ? Plantar fascia tear,? Posterior tibial tear,sprain lt foot,post tibial TECHNIQUE: Multiplanar multisequence MRI was performed without intravenous contrast. COMPARISON: No exams were available for comparison FINDINGS: SKIN: No evidence of ulcer nor subcutaneous tract. BONES/JOINTS: No evidence of fracture nor bone contusion. No prominent joint effusions.. The talar dome appears unremarkable. The ankle mortise is maintained. There is no evidence of para-articular ganglion.There is no evidence of osseous tarsal coalition. No evidence of pes planus. LIGAMENTS: The anterior and posterior tibiofibular and calcaneofibular ligaments are intact. The ante rior and posterior talofibular ligaments are intact. The deltoid ligament is intact. SINUS TARSI: There is no loss of the normal fat signal in this space. Interosseous ligament is intac t. There is no evidence of sinus tarsi ganglion cyst. ANTEROLATERAL GUTTER:There is no abnormal signal/abnormal tissue in this space. MUSCULOTENDINOUS STRUCTURES: Achilles tendon: Unremarkable. No evidence of tear nor tendinitis/tendinosis. Plantar fascia: Abnormal. There is significant abnormal fusiform thickening and signal abnormality i n the medial bundle of the plantar fascia approximately 1.5 from its insertional aspect on the inferior calcaneus. At this level it measures 9-10 mm thick and e xhibits significant signal abnormality which is isointense to muscle on T1 images and increased signa l compared to muscle on T2 images. There is some mild overlying soft tissue edema. There is a 1 cm length of the plantar fascia between this area and the inferior calcaneal insertion site which appear s unremarkable. The more lateral of the plantar fascia bundles appears unremarkable with no similar findings. There is no inferior calcaneal spur and no abnormal intraosseous signal evident in the inf erior calcaneus. No abnormal signal nor fluid in the heel fat pad. Anterior Extensor tendons: Unremarkable. Medial Tendons: Posterior Tibialis: Unremarkable. No tear or tenosynovitis evident. Flexor Digitorum longus: Unremarkable. No tear or tenosynovitis evident. Flexor Hallicus longus: Unremarkable. No tear or tenosynovitis evident. Lateral Tendons: Peroneus longus: Unremarkable. No tear nor tenosynovitis evident. Peroneus brevis:Unremarkable. No tear nor tenosynovitis evident. SOFT TISSUES: Unremarkable. OTHER FINDINGS: In the distal aspect of the field of view there is a joint effusion evident in the gr eat toe metatarsophalangeal joint evident. IMPRESSION: The main finding here is significant abnormal focal fusiform enlargement and signal abnormality withi n the medial bundle of the plantar fascia, this starting 1.5 cm from its insertional aspect on the in ferior calcaneus; not involving the calcaneal origin.. This is abnormally thickened for a longtitudi nal distance of 2.5 cm and with maximum thickness of 9-10 mm.. This is most probably a plantar fibro ma. However, the increased T2 signal within this abnormal thickened fusiform area is more than typic ally seen with a fibroma and therefore may imply some internal tearing and/or cystic change. Other c onsideration would be for atypical plantar fasciitis with tearing DATA REPOSITORY:
== END 2024-05-21 01:50 ==
LOC: DI 01:30
PROVIDERS: PCP Family Medicine; Visit Provider Podiatrist
DX: M76.822 Posterior tibial tendinitis, left leg (principal); S93.622A Sprain of tarsometatarsal ligament of left foot, initial encounter; X58.XXXA Exposure to other specified factors, initial encounter
CPT/HCPCS: 73721

== ENCOUNTER 2024-05-27 12:21 | Day surgery (SDC) | payer OTHER, SELFPAY ==
[2024-05-27 12:32] VITALS: BP 139/97; PULSE 60; RESP 16; TEMP 36.4; O2SAT 97
[2024-05-27] MEDS: Celecoxib 200 MG CAP 400 MG PO (12:50)
[2024-05-27] MEDS: Acetaminophen 500 MG TAB 1000 MG PO (12:50)
[2024-05-27] MEDS: Normal Saline Flush 10 ML SYR IV (13:03)
--- NOTE | 2024-05-27 13:19 | ANES.PREOP_ITS ---
General Info Date of Service Date Performed: 05/27/24 Height: 6 ft 1 in Weight: 123.3 kg Body Mass Index (BMI): 35.9 Surgical Procedure: Operation Date: 05/27/24 15:25 Proposed Procedure Side Surgeon p Knee Arthroscopy, Synovectomy Left Vidal Ramos MD Meds Allergies and Home Medications Allergies Allergy/AdvReac Type Severity Reaction Status Date / Time No Known Allergies Allergy Verified 05/27/24 12:48 Home Medication ?Medication ?Instructions ?Recorded gabapentin 300 mg capsule 300 mg PO BID 06/18/23 Current Visit Medications: Current Medications Generic Name Dose Route Start Last Admin Trade Name Freq PRN Reason Stop Dose Admin Acetaminophen 1,000 mg 05/27/24 06:00 05/27/24 12:50 Acetaminophen 500 Mg Tab PO 06/25/24 23:59 1,000 mg PREOP SHAWNA Administration Celecoxib 400 mg 05/27/24 06:00 05/27/24 12:50 Celecoxib 200 Mg Cap PO 06/25/24 23:59 400 mg PREOP SHAWNA Administration Cefazolin Sodium 3,000 mg/ 100 mls @ 200 mls/hr 05/27/24 06:00 Sodium Chloride IV 06/25/24 23:59 PREOP SHAWNA Tranexamic Acid/Sodium Chloride 1,000 mg in 100 mls @ 600 mls/hr 05/27/24 06:00 IVPB 06/25/24 23:59 PREOP SHAWNA IV Miscellaneous Supplies 1 each 05/27/24 06:00 Iv Access IV 06/25/24 23:59 DIRECTED SHAWNA Sodium Chloride 0 ml 05/27/24 06:00 05/27/24 13:03 Normal Saline Flush 10 Ml Syr IV 06/25/24 23:59 10 ml PRN PRN Administration Sodium Chloride 0 ml 05/27/24 06:00 Normal Saline 10 Ml Vial IJ 06/25/24 23:59 DIRECTED PRN Sterile Water 0 ml 05/27/24 06:00 Water,Injection,Sterile 10 Ml Vial IJ 06/25/24 23:59 DIRECTED PRN PFSH Active Problems Active Problems: Problem Status Onset Code Posterior tibial tendinitis of left leg Acute M76.822 Nontraumatic tear of plantar fascia Acute M62.9 Sprain of tarsometatarsal joint of left foot Acute S93.622A Left foot pain Acute M79.672 Maltracking of left patella Acute M22.8X2 Crepitus of joint of left knee Acute M23.8X2 Status post left partial knee replacement Acute 01/31/23 Z96.652 Chronic maxillary sinusitis Chronic J32.0 Chondromalacia of left patellofemoral joint Acute M22.42 Morbid obesity Acute E66.01 Internal derangement of left knee Acute M23.92 Medical History Medical History Back pain Buldging disk Mass of right side of neck (11/26/17) per pt. 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 states it was exploratory Tobacco Smoking/Tobacco Use Status: Current every day Tobacco Type: smokeless tobacco Alcohol Alcohol Intake: current Alcohol intake frequency: holidays/special occasions only Substance Use Substance use: Never Substance use type: does not use Vital Signs and Lab Results Vital Signs Most Recent Vital Signs in EMR: Most Recent Vital Signs Temp Pulse Resp BP Pulse Ox 36.4 C L 60 16 139/97 H 97 05/27/24 12:32 05/27/24 12:32 05/27/24 12:32 05/27/24 12:32 05/27/24 12:32 Lab Results Blood Type / Crossmatch: No Data to Display Complete Blood Count: No Data to Display Complete Metabolic Panel: No Data to Display Liver Function Panel: 2 No Data to Display Coagulation Panel: No Data to Display Cardiac Panel: No Data to Display Arterial Blood Gas: No Data to Display Venous Blood Gas: No Data to Display Pancreas Panel: No Data to Display Thyroid Panel: No Data to Display Infectious Disease: No Data to Display Blood Cultures: No Data to Display Toxicology Panel: No Data to Display Anesthesia Assessment and Plan Anesthesia History Personal History: No History of Anesthesia Complications Family History: No Family History of Anesthesia Complications Exercise Tolerance Exercise Tolerance: Metabolic Equivalents>4 Cardiac & Pulmonary Exam Cardiac Exam: Normal S1/S2 Heart Sounds Pulmonary Exam: Clear Bilateral Breath Sounds Implantable Cardiac Device Does patient have a Pacemaker or an ICD?: No Airway Exam Known Difficult Airway: No Mallampati Class: 3 Mouth Opening: Normal (> 3cm) Thyromental Distance: Greater than 3 cm Neck Range of Motion: Full ROM Neck Circumference: Thick Teeth Condition: Normal Dentition and Removable Dentures/Plates Upper ASA Classification ASA Score: ASA 2 Emergency Case?: No NPO Status NPO Status: NPO Clears >2 hours, Solids >8 hours Anesthesia Plan Resuscitation Status: Full Code Anesthesia Technique: General Anesthesia Airway Planned: LMA Monitors Used: Standard Monitors Preoperative Comments:: 53 yo male for knee scope. Sig PMHx: neck mass (no issues), denies major. Previous Anes: - patellofem replacement, spinal, prop sedation, no issues. Plan for GA with rescue regional ass needed.
[2024-05-27 13:22] VITALS: BMI 35.9
--- NOTE | 2024-05-27 13:45 | W.PREOPHP ---
Assessment and Plan Assessment and plan (1) Crepitus of joint of left knee: Status: Acute Assessment and plan: Henrry is a 53-year-old male who has some crepitus and pain about the lateral aspect of the patellofemoral joint after patellofemoral replacement. His preoperative symptoms are improved he continues have this pain about this area with notable bony overgrowth on the x-ray and replicable crepitus on examination. Therefore, I recommended proceeding with arthroscopic synovectomy and ostectomy. I reviewed the details of the surgery. This will be done arthroscopically. I discussed the risk to include bleeding, infection, pain, stiffness, continued symptoms, blood clot. Despite these risk, he elects to proceed. History of Present Illness History of Present Illness Chief Complaint: Left knee pain after patellofemoral replacement Narrative: Henrry is here for pain about his left knee after patellofemoral replacement. His preoperative pain is much better but he continues have the pain about the lateral aspect of patella where there is been noted some increased bony growth as well as some crepitus on examination. I recommended arthroscopic synovectomy and he is here today for that procedure. He denies any changes to his medical history. No chest pain or shortness of breath. Review of Systems All systems reviewed & are unremarkable except as noted in HPI and below PFSH All Active Problems Posterior tibial tendinitis of left leg (Acute) Nontraumatic tear of plantar fascia (Acute) Sprain of tarsometatarsal joint of left foot (Acute) Left foot pain (Acute) Maltracking of left patella (Acute) Crepitus of joint of left knee (Acute) Status post left partial knee replacement (Acute 01/31/23) Patellofemoral Chronic maxillary sinusitis (Chronic) Chondromalacia of left patellofemoral joint (Acute) s/p L Patellofemoral Replacement (01/17/23) Most recent Depo-Medrol: 02/04/24 Morbid obesity (Acute) Internal derangement of left knee (Acute) Medical History Back pain Buldging disk Mass of right side of neck (11/26/17) per pt. 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 states it was exploratory Social History Smoking/Tobacco Use Status: Current every day Tobacco Type: smokeless tobacco Smoking risk assessment performed?: Yes Alcohol Intake: current Alcohol Intake frequency: holidays/special occasions only Drug use: Never Substance use type: does not use Housing: house Current gender identity: male Do you feel safe at home: Yes Do you feel safe in your relationship?: Yes Meds Allergies and Home Medications Allergies Allergy/AdvReac Type Severity Reaction Status Date / Time No Known Allergies Allergy Verified 05/27/24 12:48 Home Medications ?Medication ?Instructions ?Recorded ?Confirmed ?Type gabapentin 300 mg capsule 300 mg PO BID 06/18/23 05/27/24 History Exam Const General: cooperative, healthy appearing, comfortable and no acute distress Resp Effort & Inspection: normal respiratory effort Auscultation: clear to auscultation bilaterally Cardio Rate: regular rate Rhythm: regular rhythm Results Last Vital Signs Temp 36.4 C L 05/27/24 12:32 Pulse 60 05/27/24 12:32 Resp 16 05/27/24 12:32 BP 139/97 H 05/27/24 12:32 Pulse Ox 97 05/27/24 12:32
[2024-05-27] MEDS: Normal Saline 500 ML 30 ML IV (13:55)
[2024-05-27] MEDS: ceFAZolin 3,000 MG in Normal Saline 100 ML 200 MG IV (14:05)
--- NOTE | 2024-05-27 14:07 | W.PM.DSUDISC ---
Date of service: 05/27/24 Discharge Plan Disposition Patient Disposition: Home Condition: Good Discharge Details Reason For Visit: left knee crepitus; s/p patellofemoral replacement Attending Provider: Vidal Ramos Primary Care Provider: Rohan Portillo Home Meds and New Rx's Prescriptions: New hydrocodone-acetaminophen 5-325 mg tablet 1 tab PO Q6H PRN (Reason: severe pain) Qty: 4 0RF Rx Instructions: Take one tablet up to every 6 hours as needed for severe postoperative pain acetaminophen 500 mg tablet 500 mg PO Q6H PRN (Reason: pain) Qty: 60 2RF ibuprofen 600 mg tablet 600 mg PO TID PRN (Reason: pain) Qty: 60 0RF Continued gabapentin 300 mg capsule 300 mg PO BID Discharge Instructions Stand Alone Forms: [facility] Referrals: Vidal Ramos MD [ [facility] STAFF PHYSICIAN] - Equipment/Supplies: Partial Weight Bearing Crutches Activity:: Elevate Remove Dressings/Wound Care:: 48 hours Shower/Bathe:: 48 hours Diet:: As Tolerated Discharge Orders Discharge Orders: Discharge Order (Routine); Ordered 05/27/24 Ordered By: Yokasta Gordno DS: Diagnosis Discharge Diagnosis (1) Crepitus of joint of left knee: Status: Acute
--- NOTE | 2024-05-27 14:14 | W.PM.OP ---
Operative Note Operative Note PRE-OP DIAGNOSIS: Crepitus and Pain of Patellofemoral Knee Replacement - LEFT POST-OP DIAGNOSIS: same PROCEDURE: Arthroscopic Synovectomy, limited -left knee Ostectomy of the lateral patella, left knee SURGEON: Vidal Ramos ANESTHESIA TYPE: General LMA/ETT Refer to Anesthesia Record ESTIMATED BLOOD LOSS: 5 PATHOLOGY: none sent COMPLICATIONS: None Patient was transported to: PACU Patient's condition: stable Indications: I have seen Henrry in clinic for symptoms of pain and crepitus of the knee following patellofemoral replacement surgery. Nonoperative measures were exhausted but disability of pain and crepitus persisted. I discussed knee arthroscopy with synovectomy with the patient. I reviewed the risks of the procedure to include, but not limited to, bleeding, infection, pain, continued stiffness, recurrence, blood clot. Despite these risks, the patient elected to proceed. Findings: There is some synovitis seen around the lateral aspect of the patella and adjacent femur. There is a prominence of bone extending just past the edge of the patellar button which was resected with a shaver. Procedure Description: Henrry was greeted in the preoperative holding area where the correct side was identified and marked. The consent was reviewed with the patient and signed. The history and physical was updated. All questions were answered. He was taken back to the operating room. The patient was placed into the supine position on the operating room table. All bony prominences were well padded. Prophylactic antibiotics in the form of Cefazolin were administered. The left leg was then prepped with Chloraprep and draped in a standard fashion with stockinette and extremity drape. A timeout to confirm correct identity, side and site, procedure, allergies, anesthesia, and medical concerns was performed. A standard lateral portal was made at the lateral border of the patella tendon in line with the inferior pole of the patella, soft spot. The skin and deep tissue was incised sharply and the blunt trochar was inserted atraumatically. At this point had visualization of the femoral component. A superolateral portal was then established with spinal needle localization just superior and lateral to the patella. A knife was taken down through the skin and soft tissue to enter the knee joint. I then had excellent visualization of the patellofemoral compartment. There is notable synovitis seen adjacent to the patellar component laterally as well as the anterior femoral synovium and lateral synovium. There is abundant fibrotic tissue seen in this area. Utilizing a shaver and electrocautery I was able to remove this. I was also able then to identify prominence of bone extending just beyond the patellar button margin laterally. This was dissected any soft tissue. I then used the shaver to remove this bone from the lateral edge of the patella lateral to the patellar button. Further debridement was then taken with the anterior synovium of the femur and circumstantially around the patella. I debrided down the soft tissues in the lateral gutter of the left knee adjacent to the patella into the lateral soft tissues. The patella is tracking without any notable subluxation. There is no other complication or gross abnormality seen within the patellofemoral space. Excess fluid was removed from the knee. The wounds were closed with 4-0 Nylon. 0.25% bupivacaine was injected around the portal sites and into the knee. The wounds were dressed with Xeroform, 4x4 gauze, ABD pad, Kerlix and an MARY wrap. A cryo-cuff was applied. The patient tolerated the procedure well and was returned to the Same Day Surgery area in a stable condition suffering no known complication.. Date of Procedure: 05/27/24
[2024-05-27] MEDS: TRANEXAMIC ACID/SOD. CHL. 1,000 MG/100 ML BAG 600 MG IVPB (14:20)
[2024-05-27] MEDS: EPINEPHrine 10 MG/10 ML ML (14:29)
[2024-05-27] MEDS: Bupivacaine 0.25% Pres-Free 30 ML VIAL (14:29)
[2024-05-27 15:00] VITALS: TEMP 36.3
[2024-05-27] MEDS: fentaNYL 100 MCG/2 ML VIAL IVP ×2 (15:18→15:31)
[2024-05-27 15:28] VITALS: TEMP 36.4
--- NOTE | 2024-05-27 15:44 | W.ANESPOSTOP ---
Postoperative Evaluation Date, Time and Location Date Performed: 05/27/24 Time Performed: 15:36 Patient Location: PACU Vital Signs Most Recent Imported Vital Signs: Most Recent Vital Signs Temp Pulse Resp BP Pulse Ox 36.4 C L 60 16 139/97 H 97 05/27/24 15:28 05/27/24 12:32 05/27/24 12:32 05/27/24 12:32 05/27/24 12:32 Pain Score Most Recent Pain Score: Most Recent Pain Score Pain Level 3 05/27/24 15:41 Assessment Mental Status: Awake (Alert & Oriented to Patient Baseline) Airway and Respiratory Function: Patent airway with normal (patient baseline) respiratory exam Cardiovascular Function: Hemodynamically Stable Hydration Status: Adequately Hydrated Nausea & Vomiting: No Nausea or Vomiting Pain: Pain is tolerable per patient Peripheral Nerve Block: Patient did not receive a nerve block
[2024-05-27 15:52] VITALS: BP 129/85; PULSE 63; RESP 16; TEMP 36.2; O2SAT 94
[2024-05-27 16:17] VITALS: BP 140/86; PULSE 68; RESP 16; TEMP 36; O2SAT 94
== END 2024-05-27 16:35 | disposition home or self-care (01) ==
PROVIDERS: PCP Family Medicine; Visit Provider Student in an Organized Health Care Education/Training Program
PROC: (CPT 29870; principal; 2024-05-27 15:15)
DX: T84.84XA Pain due to internal orthopedic prosthetic devices, implants and grafts, initial encounter; M65.862 Other synovitis and tenosynovitis, left lower leg; M76.892 Other specified enthesopathies of left lower limb, excluding foot; Z96.652 Presence of left artificial knee joint; J32.0 Chronic maxillary sinusitis; E66.01 Morbid (severe) obesity due to excess calories; Z68.35 Body mass index [BMI] 35.0-35.9, adult
CPT/HCPCS: 29876; J0665; J0690; J1100; J2405; J2704; J3010